=== PATIENT | female | born 2005 | race Caucasian/White ===

== ENCOUNTER 2025-02-26 14:04 | Inpatient (IN) | payer BC, MEDICAID ==
[~2025-02-26] VITALS: Ht 30.5 cm; Wt 51.5 kg
[2025-02-26 14:50] VITALS: BP 111/58; PULSE 91; RESP 16; TEMP 98.2; O2SAT 99
[2025-02-26 15:58] LABS: Basophils # (auto) 0 10 ^3/uL (0-0.2); Basophils % (auto) 0.2 % (0.0-2.0); Eosinophils # (auto) 0 10 ^3/uL (0-0.8); Hematocrit 41.1 % (36.0-46.0); Hemoglobin 13.9 g/dL (12.2-16.2); Lymphocytes # (auto) 0.9 10 ^3/uL (0.4-5.4); Lymphocytes % (auto) 12.6 % (10.0-50.0); Mean Corpuscular Hemoglobin 29.2 pg (28.0-32.0); Mean Corpuscular Hgb Conc. 33.8 g/dL (32.0-36.0); Mean Corpuscular Volume 86.3 fL (80.0-100.0); Monocytes # (auto) 0.2 10 ^3/uL (0-1.3); Monocytes % (auto) 3.3 % (0.0-12.0); Neutrophils # (auto) 6.3 10 ^3/uL (1.6-8.6); Neutrophils % (auto) 83.9 % (37.0-80.0); Nucleated Red Blood Cells % 0.1 %; Platelet Count (auto) 241 10^3/uL (140-450); Red Blood Cells 4.76 10^6/uL (4.0-5.20); Red Cell Distribution Width 13.3 % (11.8-14.3); White Blood Cell 7.5 10^3/uL (4.4-10.8)
[2025-02-26 16:05] LABS: Chloride 106 mmol/L (98-107); Sodium 142 mmol/L (136-145)
[2025-02-26 16:06] LABS: Anion Gap 14 (5-15); Carbon Dioxide 22 mmol/L (20-31)
[2025-02-26 16:11] LABS: BUN/Creatinine Ratio 13.8 (10.0-20.0); Blood Urea Nitrogen 13 mg/dL (9-23); Glucose 85 mg/dL (74-106)
[2025-02-26 16:12] LABS: Calcium 10.5 mg/dL (8.7-10.4)
--- NOTE | 2025-02-26 17:04 | ED.PDOC ---
History of Present Illness HPI Comments 19 y/o F endorses on sudden onset of nausea and vomiting when eating with noticeable weight loss. Denies any abdominal pain, diarrhea, constipation, fever, chills, urinary symptoms, or further associated symptoms. Patient reports being on her menstrual cycle, currently. Chief Complaint: Abdominal Pain Time Seen by MD: 15:15 Reviewed Notes: Nurses Notes, Medications, Allergies Allergies: Coded Allergies: NO KNOWN ALLERGIES (Unverified , 02/26/25) Information Source: Patient Mode of Arrival: Ambulatory Past Medical History PAST MEDICAL HISTORY: Denies Surgical History: Denies all surgeries FRONT DESK REPRESENTATIVE History: No Pertinent FRONT DESK REPRESENTATIVE History Social History Smoker: Non-Smoker Alcohol: Denies ETOH Use Drugs: Denies Drug Use Lives In: Home All Other Systems: Reviewed and Negative (As per HPI) Physical Exam General Appearance: No Apparent Distress, Normal HEENT: Normal ENT Inspection, Pharynx Normal, TMs Normal Neck: Full Range of Motion, Non-Tender, Normal, Normal Inspection Respiratory: Chest Non-Tender, Lungs Clear, No Accessory Muscle Use, No Respiratory Distress, Normal Breath Sounds Cardiovascular: No Edema, No JVD, No Murmur, No Gallop, Normal Peripheral Pulses, Regular Rate/Rhythm Breast Exam: Deferred Gastrointestinal: No Organomegaly, Non Tender, No Pulsatile Mass, Normal Bowel Sounds, Soft Genitalia: Deferred Pelvic: Deferred Rectal: Deferred Extremities: No calf tenderness, Normal capillary refill, Normal inspection, Normal range of motion, Non-tender, No pedal edema Musculoskeletal : Apperance: Normal Neurologic: Alert, oncology rep specialist II-XII nml as Tested, No Motor Deficits, Normal Affect, Normal Mood, No Sensory Deficits Cerebellar Function: Normal Reflexes: Normal Skin: Dry, Normal Color, Warm Lymphatic: No Adenopathy Was a procedure done? Was a procedure done?: No Differential Dx Considerations may include: gastritis, gastroenteritis, PUD, GERD, spoiled food, viral syndrome, UTI, cholelithiasis, cholecystitis, among others. X-Ray, Labs, Meds, VS Vital Signs Date Time Temp Pulse Resp B/P (MAP) Pulse Ox O2 Delivery O2 Flow Rate FiO2 02/26/25 14:50 98.2 91 16 111/58 (75) 99 98.2 Lab Test 02/26/25 15:38 Range/Units White Blood Count 7.5 4.4-10.8 10^3/uL Red Blood Count 4.76 4.0-5.20 10^6/uL Hemoglobin 13.9 12.2-16.2 g/dL Hematocrit 41.1 36.0-46.0 % Mean Corpuscular Volume 86.3 80.0-100.0 fL Mean Corpuscular Hemoglobin 29.2 28.0-32.0 pg Mean Corpuscular Hemoglobin Concent 33.8 32.0-36.0 g/dL Red Cell Distribution Width 13.3 11.8-14.3 % Platelet Count 241 140-450 10^3/uL Mean Platelet Volume 8.0 6.9-10.8 fL Neutrophils (%) (Auto) 83.9 H 37.0-80.0 % Lymphocytes (%) (Auto) 12.6 10.0-50.0 % Monocytes (%) (Auto) 3.3 0.0-12.0 % Eosinophils (%) (Auto) 0.0 0.0-7.0 % Basophils (%) (Auto) 0.2 0.0-2.0 % Neutrophils # (Auto) 6.3 1.6-8.6 10 ^3/uL Lymphocytes # (Auto) 0.9 0.4-5.4 10 ^3/uL Monocytes # (Auto) 0.2 0-1.3 10 ^3/uL Eosinophils # (Auto) 0 0-0.8 10 ^3/uL Basophils # (Auto) 0 0-0.2 10 ^3/uL Nucleated Red Blood Cells 0.1 % Sodium Level 142 136-145 mmol/L Potassium Level 4.0 3.5-5.1 mmol/L Chloride Level 106 98-107 mmol/L Carbon Dioxide Level 22 20-31 mmol/L Anion Gap 14 5-15 Blood Urea Nitrogen 13 9-23 mg/dL Creatinine 0.94 0.550-1.02 mg/dL Glomerular Filtration Rate Calc 89 >90 mL/min BUN/Creatinine Ratio 13.8 10.0-20.0 Serum Glucose 85 74-106 mg/dL Calcium Level 10.5 H 8.7-10.4 mg/dL Beta HCG, Quantitative 0.6 L 1.5-4.2 mIU/mL Time of 1ST Reevaluation: 15:45 Reevaluation 1ST: Unchanged Patient Education/Counseling: Diagnosis, Treatment Family Education/Counseling: No Family Present SEPSIS Sepsis Screen Date sepsis recognized/suspect: Feb 26, 2025 Time Sepsis recognized/suspect: 1430 Recent Procedure: No On Antibiotic Therapy: No Respiratory Rate >20: No Heart Rate >90: Yes Temp<36 C (96.8 F) or >38.3 C: No SBP <90 or MAP <65 mmHG: No New Acute Mental Status Change: No Is the patient on CPAP, BIPAP,: No Physician Orders Test, Urine (02/26/25 15:15) Vital Signs Date Time Temp Pulse Resp B/P (MAP) Pulse Ox O2 Delivery O2 Flow Rate FiO2 02/26/25 14:50 98.2 91 16 111/58 (75) 99 98.2 Laboratory Tests Test 02/26/25 15:38 White Blood Count 7.5 10^3/uL (4.4-10.8) Departure 1 Departure Time of Disposition: 17:09 Impression: Primary Impression: Anorexia Additional Impression: Unintended weight loss Disposition: ADMITTED INPATIENT Admit to: Med Surg Condition: Serious Discharged With: Self, Spouse Critical Care Note Critical Care Time?: No Stability Stability form required: No Heart Score Heart Score: Heart Score Response (Comments) Value History N/A 0 EKG N/A 0 Age N/A 0 Risk Factors N/A 0 Troponin N/A 0 Total 0 I personally scribed for NAJMA SPAULDING MD ([email or web address]) on 02/26/25 at 17:04. Electronically submitted by Jj Reid [email or web address]). NAJMA SPAULDING MD Feb 26, 2025 17:04
--- NOTE | 2025-02-26 17:07 | ED.PDOC ---
GI ASSESSMENT HPI Comments pt reports for weeks, she has felt nausea when she eats or drinks. she denies pain, but reports weight loss, no other symptoms Chief Complaint: Abdominal Pain Time Seen by MD: 14:41 Reviewed Notes: Nurses Notes, Medications, Allergies Allergies: Coded Allergies: NO KNOWN ALLERGIES (Unverified , 02/26/25) Information Source: Patient Mode of Arrival: Ambulatory Timing: Weeks Duration: Since onset Quality: None Vomitus: None Severity: Mild Recent: None Pain Location: None Modifying Factors: Food Past Medical History PAST MEDICAL HISTORY: Denies Surgical History: Denies all surgeries CO FOUNDER AND DIRECTOR History: No Pertinent CO FOUNDER AND DIRECTOR History Family History Family History: Reviewed,noncontributory to illness, No family hx of Cancer, No family hx of DM, No family hx of Heart sanchez, No family hx of HTN, No family hx ofKidney sanchez, No family hx of Liver sanchez, No family hx of Lung sanchez, No family hx of Stroke Social History Smoker: Non-Smoker Alcohol: Denies ETOH Use Drugs: Denies Drug Use Constitutional: denies: chills, diaphoresis, fatigue, fever, malaise, sweats, weakness, others EENTM: denies: blurred vision, double vision, ear bleeding, ear discharge, ear drainage, ear pain, ear ringing, eye pain, eye redness, hearing loss, mouth pain, mouth swelling, nasal discharge, nose bleeding, nose congestion, nose pain, photophobia, tearing, throat pain, throat swelling, voice changes, others Respiratory: denies: cough, hemoptysis, orthopnea, SOB at rest, shortness of breath, SOB with excertion, stridor, wheezing, others Cardiovascular: denies: chest pain, dizzy spells, diaphoresis, Dyspnea on exertion, edema, irregular heart beat, left arm pain, lightheadedness, palpitations, PND, syncope, others Gastrointestinal: reports: nausea; denies: abdomen distended, abdominal pain, blood streaked bowels, constipated, diarrhea, dysphagia, difficulty swallowing, hematemesis, melena, poor appetite, poor fluid intake, rectal bleeding, rectal pain, vomiting, others Genitourinary: denies: abnormal vagina bleeding, burning, dyspareunia, dysuria, flank pain, frequency, hematuria, incontinence, pain, , vagina discharge, urgency, others Neurological: denies: dizziness, fainting, headache, left sided numbness, left sided weakness, numbness, paresthesia, pre-existing deficit, right sided numbness, right sided weakness, seizure, speech problems, tingling, tremors, weakness, others Musculoskeletal: denies: back pain, gout, joint pain, joint swelling, muscle pain, muscle stiffness, neck pain, others Integumetry: denies: bruises, change in color, change in hair/nails, dryness, laceration, lesions, lumps, rash, wounds, others Allergic/Immunocompromised: denies: Difficulty Healing, Frequent Infections, Hives, Itching, others Hematologic/Lymphatic: denies: anemia, blood clots, easy bleeding, easy bruising, swollen glands, others Endocrine: denies: excessive hunger, excessive sweating, excessive thirst, excessive urination, flushing, intolerance to cold, intolerance to heat, unexplained weight gain, unexplained weight loss, others Psychiatric: denies: anxiety, bipolar disorder, depression, hopeless, panic disorder, schizophrenia, sleepless, suicidal, others All Other Systems: Reviewed and Negative Physical Exam General Appearance: No Apparent Distress, Normal HEENT: Normal ENT Inspection, Pharynx Normal, TMs Normal Neck: Full Range of Motion, Non-Tender, Normal, Normal Inspection Respiratory: Chest Non-Tender, Lungs Clear, No Accessory Muscle Use, No Respiratory Distress, Normal Breath Sounds Cardiovascular: No Edema, No JVD, No Murmur, No Gallop, Normal Peripheral Pulses, Regular Rate/Rhythm Breast Exam: Deferred Gastrointestinal: No Organomegaly, Non Tender, No Pulsatile Mass, Normal Bowel Sounds, Soft Genitalia: Deferred Pelvic: Deferred Rectal: Deferred Extremities: No calf tenderness, Normal capillary refill, Normal inspection, Normal range of motion, Non-tender, No pedal edema Musculoskeletal : Apperance: Normal Neurologic: Alert, school supervisor II-XII nml as Tested, No Motor Deficits, Normal Affect, Normal Mood, No Sensory Deficits Cerebellar Function: Normal Reflexes: Normal Skin: Dry, Normal Color, Warm Lymphatic: No Adenopathy Was a procedure done? Was a procedure done?: No GI differential Dx Differential Diagnosis: Appendicitis, Constipation, Gastritis/PUD, Electrolyte Imbalance, Food Poisoning, , Viral, Other (anorexia nervosa, bulimia) X-Ray, Labs, Meds, VS Vital Signs Date Time Temp Pulse Resp B/P (MAP) Pulse Ox O2 Delivery O2 Flow Rate FiO2 02/26/25 14:50 98.2 91 16 111/58 (75) 99 98.2 Lab Test 02/26/25 15:38 Range/Units White Blood Count 7.5 4.4-10.8 10^3/uL Red Blood Count 4.76 4.0-5.20 10^6/uL Hemoglobin 13.9 12.2-16.2 g/dL Hematocrit 41.1 36.0-46.0 % Mean Corpuscular Volume 86.3 80.0-100.0 fL Mean Corpuscular Hemoglobin 29.2 28.0-32.0 pg Mean Corpuscular Hemoglobin Concent 33.8 32.0-36.0 g/dL Red Cell Distribution Width 13.3 11.8-14.3 % Platelet Count 241 140-450 10^3/uL Mean Platelet Volume 8.0 6.9-10.8 fL Neutrophils (%) (Auto) 83.9 H 37.0-80.0 % Lymphocytes (%) (Auto) 12.6 10.0-50.0 % Monocytes (%) (Auto) 3.3 0.0-12.0 % Eosinophils (%) (Auto) 0.0 0.0-7.0 % Basophils (%) (Auto) 0.2 0.0-2.0 % Neutrophils # (Auto) 6.3 1.6-8.6 10 ^3/uL Lymphocytes # (Auto) 0.9 0.4-5.4 10 ^3/uL Monocytes # (Auto) 0.2 0-1.3 10 ^3/uL Eosinophils # (Auto) 0 0-0.8 10 ^3/uL Basophils # (Auto) 0 0-0.2 10 ^3/uL Nucleated Red Blood Cells 0.1 % Sodium Level 142 136-145 mmol/L Potassium Level 4.0 3.5-5.1 mmol/L Chloride Level 106 98-107 mmol/L Carbon Dioxide Level 22 20-31 mmol/L Anion Gap 14 5-15 Blood Urea Nitrogen 13 9-23 mg/dL Creatinine 0.94 0.550-1.02 mg/dL Glomerular Filtration Rate Calc 89 >90 mL/min BUN/Creatinine Ratio 13.8 10.0-20.0 Serum Glucose 85 74-106 mg/dL Calcium Level 10.5 H 8.7-10.4 mg/dL Beta HCG, Quantitative 0.6 L 1.5-4.2 mIU/mL Time of 1ST Reevaluation: 17:01 Reevaluation 1ST: Unchanged Patient Education/Counseling: Diagnosis, Treatment, Prognosis, Need For Follow Up Family Education/Counseling: Diagnosis, Treatment, Prognosis, Need For Follow Up Comments pt reports weight loss and inability to keep anything down by mouth. she does not have pain, but gets nausea with oral intake. her electrolytes are unremarkable and she is not . however, with her concerning symptoms, i will admit her to monitor her for oral intake and further workups SEPSIS Sepsis Screen Date sepsis recognized/suspect: Feb 26, 2025 Time Sepsis recognized/suspect: 1430 Recent Procedure: No On Antibiotic Therapy: No Respiratory Rate >20: No Heart Rate >90: Yes Temp<36 C (96.8 F) or >38.3 C: No SBP <90 or MAP <65 mmHG: No New Acute Mental Status Change: No Is the patient on CPAP, BIPAP,: No Physician Orders Test, Urine (02/26/25 15:15) Vital Signs Date Time Temp Pulse Resp B/P (MAP) Pulse Ox O2 Delivery O2 Flow Rate FiO2 02/26/25 14:50 98.2 91 16 111/58 (75) 99 98.2 Laboratory Tests Test 02/26/25 15:38 White Blood Count 7.5 10^3/uL (4.4-10.8) Departure 1 Departure Time of Disposition: 17:06 Impression: Primary Impression: Anorexia Additional Impression: Unintended weight loss Disposition: 09 ADMITTED INPATIENT Admit to: Med Surg Condition: Serious Discharged With: Self, Spouse Critical Care Note Critical Care Time?: No Stability Stability form required: NAJMA Jean MD Feb 26, 2025 17:07
[2025-02-27] MEDS ORDERED: ONDANSETRON HCL 4 MG/2 ML VIAL IV PRN (01:15)
[2025-02-27] MEDS ORDERED: HYDROcodone-ACET 5/325MG TAB PO PRN (01:15)
[2025-02-27] MEDS ORDERED: DOCUSATE SOD 100 MG CAP PO PRN (01:15)
[2025-02-27] MEDS ORDERED: ACETAMINOPHEN 325 MG TAB PO PRN (01:15)
--- NOTE | 2025-02-27 02:36 | DVHHP2 ---
History of Present Illness Reason for Visit: Acute abdominal pain History of Present Illness The patient is a 19-year-old female who denies past medical history presented to [facility] ED with complaint of abdominal pain. Patient reports symptoms progressively get worse with nausea, vomiting, weight loss, getting worse that prompted this visit. Patient reports being on her menstrual cycle, currently. Patient was seen and evaluated in the ED, laboratory data shows WBC 7.5, platelets 241, sodium 142, potassium 4.0, BUN 13, creatinine 0.94, glucose 85, calcium 10.5, blood pressure 112/58, heart rate 92, temperature 98.2 F, O2 saturation 99% on room air. Please see medication orders section in the computer. On my assessment, patient denied chest pain, no headache, no dizziness, no shortness of breath, no diarrhea, no nausea, no vomiting, no fever, no chills. Patient was admitted for further evaluation and medical management. Past Medical History Denies past medical history Past Surgical History Denies all surgeries Family History Reviewed, noncontributory to the management of this case. Past Social History The patient lives at home, denies smoking, alcohol or illicit drugs abuse. Review of Systems Constitutional: Yes: Weakness; No: Fever, Chills, Sweats, Malaise, Other Eyes: No: Pain, Vision change, Conjunctivae inflammation, Eyelid inflammation, Other, Redness ENT: No: Ear pain, Ear discharge, Nose pain, Nose discharge, Nose congestion, Mouth pain, Mouth swelling, Throat pain, Throat swelling, Other Respiratory: No: Cough, Dry, Shortness of breath, SOB with excertion, Wheezing, Hemoptysis, Pleuritic Pain, Sputum, Wheezing, Other Cardiovascular: No: Chest Pain, Palpitations, Orthopnea, Paroxysmal Noc. Dyspnea, Edema, Lt Headedness, Other Gastrointestinal: Nausea, Vomiting, Abdominal Pain, Other (Anorexia); No: Diarrhea, Constipation, Melena, Hematochezia Genitourinary: No Dysuria, No Frequency, No Incontinence, No Hematuria, No Retention, No Other Musculoskeletal: No: other, neck pain, shoulder pain, arm pain, back pain, hand pain, leg pain, foot pain Skin: No: Rash, Lesions, Jaundice, Bruising, Other Neurological: No: Weakness, Numbness, Incoordination, Change in speech, Confusion, Seizures, Other Allergies: Coded Allergies: NO KNOWN ALLERGIES (Unverified , 02/26/25) Medications Current Medications Medications Dose Ordered Sig/Hanane Route Start Time Stop Time Status Last Admin Dose Admin Sodium Chloride 10 ml Q8HR IV 02/27/25 06:00 Acetaminophen/ Hydrocodone Bitart 1 tab Q4HP PRN PO 02/27/25 01:15 Ondansetron HCl 4 mg Q4HP PRN IV 02/27/25 01:15 Docusate Sodium 100 mg BIDPRN PRN PO 02/27/25 01:15 Acetaminophen 650 mg Q6HP PRN PO 02/27/25 01:15 Exam Vital Signs Vital Signs Date Time Temp Pulse Resp B/P (MAP) Pulse Ox O2 Delivery O2 Flow Rate FiO2 02/26/25 14:50 98.2 91 16 111/58 (75) 99 98.2 General Appearance: Alert, Oriented X3, Cooperative, No acute distress HEENT: Atraumatic, PERRLA, EOMI, Mucous membr. moist/pink Respiratory: Normal air movement Cardiovascular: Regular rate, Normal S1, Normal S2, No murmurs Abdominal: Normal bowel sounds, Soft, No tenderness, No hepatospenomegaly, No masses Extremities: No clubbing, No cyanosis, No edema, Normal pulses, No tenderness/swelling Skin: No rashes, No breakdown, No significant lesion Neuro: Normal speech, Normal tone, Sensation intact, Cranial nerves 3-12 NL, Reflexes 2+, Other (Generalized weakness) Psych/Mental Status: Mental status NL, Mood NL Labs/Xrays Labs Test 02/26/25 15:38 Range/Units White Blood Count 7.5 4.4-10.8 10^3/uL Red Blood Count 4.76 4.0-5.20 10^6/uL Hemoglobin 13.9 12.2-16.2 g/dL Hematocrit 41.1 36.0-46.0 % Mean Corpuscular Volume 86.3 80.0-100.0 fL Mean Corpuscular Hemoglobin 29.2 28.0-32.0 pg Mean Corpuscular Hemoglobin Concent 33.8 32.0-36.0 g/dL Red Cell Distribution Width 13.3 11.8-14.3 % Platelet Count 241 140-450 10^3/uL Mean Platelet Volume 8.0 6.9-10.8 fL Neutrophils (%) (Auto) 83.9 H 37.0-80.0 % Lymphocytes (%) (Auto) 12.6 10.0-50.0 % Monocytes (%) (Auto) 3.3 0.0-12.0 % Eosinophils (%) (Auto) 0.0 0.0-7.0 % Basophils (%) (Auto) 0.2 0.0-2.0 % Neutrophils # (Auto) 6.3 1.6-8.6 10 ^3/uL Lymphocytes # (Auto) 0.9 0.4-5.4 10 ^3/uL Monocytes # (Auto) 0.2 0-1.3 10 ^3/uL Eosinophils # (Auto) 0 0-0.8 10 ^3/uL Basophils # (Auto) 0 0-0.2 10 ^3/uL Nucleated Red Blood Cells 0.1 % Sodium Level 142 136-145 mmol/L Potassium Level 4.0 3.5-5.1 mmol/L Chloride Level 106 98-107 mmol/L Carbon Dioxide Level 22 20-31 mmol/L Anion Gap 14 5-15 Blood Urea Nitrogen 13 9-23 mg/dL Creatinine 0.94 0.550-1.02 mg/dL Glomerular Filtration Rate Calc 89 >90 mL/min BUN/Creatinine Ratio 13.8 10.0-20.0 Serum Glucose 85 74-106 mg/dL Calcium Level 10.5 H 8.7-10.4 mg/dL Beta HCG, Quantitative 0.6 L 1.5-4.2 mIU/mL Assessment/Plan Assessment/Plan Acute abdominal pain Anorexia Unintended weight loss Intractable nausea and vomiting Plan 1. Admit to med surge unit 2. Breathing treatment 3. Pain control management 4. Management of fluids and electrolytes 5. Consultation for hospitalist 6. Diagnostic tests chest x-ray 7. DVT prophylaxis on SCDs 8. Repeat labs CBC, CMP in a.m. 9. Continue with current medical management 10. Treatment plan discussed with patient and RN. Patient verbalized understanding. Plan discussed with: Patient, Other (RN) My Orders Orders - OLI YANEZ DNP Procedure Category Date Status Time Complete Blood Count LAB 02/27/25 Logged 04:00 Comprehensive LAB 02/27/25 Logged Metabolic Panel 04:00 Allergies ADRIANA 02/27/25 In Process 01:11 Code Status CODE 02/27/25 Transmitted 01:11 Sodium Chloride Lock PHA 02/27/25 In Process (Saline Lock Ns) 06:00 Oxygen Per Hour RT 02/27/25 Transmitted 01:11 Hydrocodone-Acet PHA 02/27/25 In Process 5/325mg Tab ([place] 01:15 Ondansetron Hcl PHA 02/27/25 In Process (Zofran) 01:15 Docusate Sodium PHA 02/27/25 In Process Capsule (Colace 01:15 Complete Blood Count LAB 02/28/25 Verified 04:00 Comprehensive LAB 02/28/25 Verified Metabolic Panel 04:00 Condition: Serious ADRIANA 02/27/25 In Process 01:11 Acetaminophen Tablet PHA 02/27/25 In Process (Tylenol Tablet) 01:15 Clear Liq Diet DIET 02/27/25 Transmitted Breakfast Bedrest With Bathroom ADRIANA 02/27/25 In Process Privileg 01:11 Sequential ADRIANA 02/27/25 In Process Compression Device Admit ADMIT 02/27/25 Verified 02:35 Nitroglycerin PHA 02/27/25 Verified Sublingual (Ntrostat 02:45 Morphine Sulfate PHA 02/27/25 Verified Injection 02:45 Notify Md Of Changes ADRIANA 02/27/25 Verified From Base 02:35 Emergency Dysrhythmia ADRIANA 02/27/25 Verified Protocol 02:35 Oxygen By Nasal RT 02/27/25 Verified Cannula 02:35 Problem List: (1) Acute abdominal pain (2) Anorexia (3) Unintended weight loss (4) Intractable nausea and vomiting Date of Service: Feb 27, 2025 Billing Provider: OLI YANEZ DNP Common Visit Codes: [id number] INP/OBS CARE (HIGH) OLI YANEZ DNP Feb 27, 2025 02:36
[2025-02-27] MEDS ORDERED: NITROGLYCERIN 0.4 MG SL TAB SL PRN (02:45)
[2025-02-27] MEDS ORDERED: MORPHINE SULFATE INJ 2 MG/ml SYRG IV PRN (02:45)
[2025-02-27] MEDS: SODIUM CHLOR 0.9% PF (SALINE LOCK) 10ML VIAL/SYR IV SCH (06:00)
== END 2025-02-27 09:51 | disposition left against medical advice (07) | DRG 251 ==
LOC: ER 14:04 → OVERFLOW 02-27 02:35
PROVIDERS: ADMIT Nurse Practitioner Family; ATTEND Nurse Practitioner Family
DX: R10.9 Unspecified abdominal pain (principal); Z68.43 Body mass index [BMI] 50.0-59.9, adult; R11.2 Nausea with vomiting, unspecified; R63.0 Anorexia; R63.4 Abnormal weight loss; Z53.21 Procedure and treatment not carried out due to patient leaving prior to being seen by health care provider
CPT/HCPCS: 36415; 80048; 84702; 85025; G0378